=== PATIENT | male | born 1970 | race Caucasian/White ===

== ENCOUNTER 2017-01-07 03:54 | Emergency (ER) | payer OTHER ==
--- NOTE | 2017-01-07 07:28 | Cat Scan Report ---
FINAL REPORT PROCEDURE: CT HEAD/BRAIN WO CON TECHNIQUE: Computerized tomography of the head was performed without contrast material. HISTORY: headache w/nausea and photosensitivity COMPARISON: None FINDINGS: Brain volume is age appropriate. There is no abnormal density within the white matter. There is no CT evident acute infarction. There is no intra or extra-axial hemorrhage. There is no mass effect. There is no gross mass lesion or leptomeningeal abnormality given limitation of lack of IV contrast. The skull base and calvarium are intact. Chronic pansinusitis is present. Small bilateral EAC cerumen is noted. IMPRESSION: No CT evident focal intracranial abnormality. Chronic pansinusitis.
[2017-01-07] MEDS ORDERED: TORADOL IV ONE (13:00)
[2017-01-07] MEDS ORDERED: NACL 0.9% 1000 ML 1,000 ML IV ONE (13:00)
--- NOTE | 2017-01-07 13:36 | Emergency Department Report ---
ED Headache HPI - General Chief Complaint: Headache Stated Complaint: FEVER,CHILLS Time Seen by Provider: 01/07/17 12:45 - History of Present Illness Initial Comments: Patient complains of anterior facial pain. He states he's had substantial nasal drainage and a sore throat. He denies any neck discomfort. He's had no photophobia and no nausea no vomiting. He thinks he may have been febrile but did not take a temperature. He's had no chills. He states that he has had problems with his sinuses for some time but not any recent antibiotics. He's never seen an ENT physician. Timing/Duration: 24 hours Quality: moderate Head Injury Location: frontal Recent Head Trauma: no recent headache/trauma Modifying Factors: worse with: other Associated Symptoms: denies symptoms (except sinus drainage), sinus infection Allergies/Adverse Reactions: Allergies dust Allergy (Uncoded 01/07/17 04:22) Shortness of Breath Home Medications: Ambulatory Orders Amoxicillin/K Clav Tab [Augmentin 875 mg] 1 tab PO Q12HR #20 tab 01/07/17 Butalb/Acetaminophen/Caffeine [Fioricet 50-300-40 mg CAP] 1 cap PO Q6HR PRN #14 cap 01/07/17 ED Review of Systems ROS: Stated complaint: FEVER,CHILLS Other details as noted in HPI Constitutional: denies: chills, fever Eyes: denies: eye pain, eye discharge, vision change ENT: denies: ear pain, throat pain Respiratory: denies: cough, shortness of breath, wheezing Cardiovascular: denies: chest pain, palpitations Endocrine: no symptoms reported Gastrointestinal: denies: abdominal pain, nausea, diarrhea Genitourinary: denies: urgency, dysuria Musculoskeletal: denies: back pain, joint swelling, arthralgia Skin: denies: rash, lesions Neurological: as per HPI, headache. denies: weakness, paresthesias Psychiatric: denies: anxiety, depression Hematological/Lymphatic: denies: easy bleeding, easy bruising ED Past Medical Hx - Past Medical History Previous Medical History?: No - Surgical History Past Surgical History?: Yes Additional Surgical History: sx on thumb, nose and ankle - Social History Smoking Status: Never Smoker Substance Use Type: None - Medications Home Medications: Home Medications Medication Instructions Recorded Confirmed Last Taken Type Amoxicillin/K Clav Tab [Augmentin 1 tab PO Q12HR #20 tab 01/07/17 Unknown Rx 875 mg] Butalb/Acetaminophen/Caffeine 1 cap PO Q6HR PRN #14 cap 01/07/17 Unknown Rx [Fioricet 50-300-40 mg CAP] ED Physical Exam - General Limitations: No Limitations General appearance: alert, in no apparent distress - Head Head exam: Present: atraumatic, normocephalic - Eye Eye exam: Present: normal appearance. Absent: scleral icterus - ENT ENT exam: Present: normal orophraynx, mucous membranes moist - Neck Neck exam: Present: normal inspection. Absent: tenderness, meningismus - Respiratory Respiratory exam: Present: normal lung sounds bilaterally. Absent: respiratory distress - Cardiovascular Cardiovascular Exam: Present: regular rate, normal rhythm. Absent: systolic murmur, diastolic murmur, rubs, gallop - GI/Abdominal GI/Abdominal exam: Present: soft, normal bowel sounds. Absent: distended, tenderness, guarding, rebound, rigid - Rectal Rectal exam: Present: deferred - Extremities Exam Extremities exam: Present: normal inspection, full ROM. Absent: calf tenderness - Back Exam Back exam: Present: normal inspection - Neurological Exam Neurological exam: Present: alert, oriented X3, CN II-XII intact. Absent: motor sensory deficit - Psychiatric Psychiatric exam: Present: normal affect, normal mood - Skin Skin exam: Present: warm, dry, intact, normal color. Absent: rash ED Course Vital Signs 01/07/17 01/07/17 01/07/17 03:58 04:13 10:07 Temperature 98.1 F 98.1 F Pulse Rate 73 78 62 Respiratory 18 18 12 Rate Blood Pressure 110/77 110/77 O2 Sat by Pulse 98 98 Oximetry 01/07/17 01/07/17 01/07/17 10:15 10:30 10:45 Temperature Pulse Rate 62 59 L 52 L Respiratory 16 20 18 Rate Blood Pressure 113/80 123/82 120/85 O2 Sat by Pulse 98 100 100 Oximetry 01/07/17 01/07/17 11:00 11:15 Temperature Pulse Rate 53 L 66 Respiratory 17 16 Rate Blood Pressure 120/85 115/87 O2 Sat by Pulse 100 100 Oximetry - Reevaluation(s) Reevaluation #1: Patient given IV fluid and IV ceftriaxone and an analgesic. His CT showed pansinusitis. He is clinically well and certainly nontoxic. His headache is mild at the time of my encounter. He is appropriate for outpatient management. He will be referred to an ENT physician and primary care. 01/07/17 13:37 01/07/17 13:38 ED Medical Decision Making - Radiology Data Radiology results: report reviewed Critical care attestation.: If time is entered above; I have spent that time in minutes in the direct care of this critically ill patient, excluding procedure time. ED Disposition Clinical Impression: Acute pansinusitis Qualifiers: Recurrence: not specified as recurrent Qualified Code(s): J01.40 - Acute pansinusitis, unspecified Cephalalgia Qualifiers: Headache type: unspecified Headache chronicity pattern: acute headache Intractability: not intractable Qualified Code(s): R51 - Headache Disposition: DC- TO HOME OR SELFCARE Is pt being admited?: No Does the pt Need Aspirin: No Condition: Stable Instructions: Sinusitis (ED), Acute Headache (ED) Additional Instructions: Return if fever chills or worsening headache. Return any acute change or problem. Rx as directed. Follow up with a primary care physician as well as an ENT physician. Prescriptions: Amoxicillin/K Clav Tab [Augmentin 875 mg] 1 tab PO Q12HR #20 tab Butalb/Acetaminophen/Caffeine [Fioricet 50-300-40 mg CAP] 1 cap PO Q6HR PRN #14 cap PRN Reason: Headache Referrals: DANAI ASTUDILLO [Other] - 2-3 Days FINA SINGLETON MD [Staff Physician] - 3-5 Days Time of Disposition: 13:39
[2017-01-07] MEDS ORDERED: cefTRIAXone 1 GM in NACL 0.9% 20 ML IV ONE (14:00)
[2017-01-07] MEDS ORDERED: ROCEPHIN/NS 1 GM/50 ML 1 GM/50 ML BAG IV ONE (14:00)
[2017-01-07 14:37] VITALS: BP 122/87
== END 2017-01-07 14:35 | disposition home or self-care (01) ==
LOC: ED 03:54
DX: J01.40 Acute pansinusitis, unspecified (principal); R51 Headache
CPT/HCPCS: 70450; 96361; 96374; 96375; 99283; J0696; J1885; J7030